=== PATIENT | female | born 1990 | race Caucasian/White ===

== ENCOUNTER 2017-09-21 22:02 | Inpatient (IN) | payer OTHER ==
[~2017-09-21] VITALS: Ht 147.3 cm; Wt 43.2 kg
[2017-09-21 22:47] LABS: BASOPHILS # (AUTO) 0.03 K/uL (0.00-0.20); BASOPHILS % (AUTO) 0.4 % (0.0-2.0); EOSINOPHILS # (AUTO) 0.06 K/uL (0.00-0.70); EOSINOPHILS % (AUTO) 0.87 % (1.0-6.0); HEMATOCRIT 41.1 % (36-46); HEMOGLOBIN 13.9 g/dL (12.0-16.0); LYMPHOCYTES # (AUTO) 2.8 K/uL (1.0-4.8); LYMPHOCYTES % (AUTO) 40.6 % (22.0-44.0); MEAN CORPUSCULAR HEMOGLOBIN 31.8 pg (26.0-34.0); MEAN CORPUSCULAR HGB CONC 33.9 G/dL (31.0-37.0); MEAN CORPUSCULAR VOLUME 94 fL (80-100); MONOCYTES # (AUTO) 0.5 K/uL (0.1-1.0); MONOCYTES % (AUTO) 6.8 % (2.0-9.0); NEUTROPHILS # (AUTO) 3.5 K/uL (1.8-7.7); NEUTROPHILS % (AUTO) 51.3 % (40.0-70.0); PLATELET COUNT (AUTO) 254 K/uL (150-450); RED BLOOD CELL COUNT(AUTO) 4.37 MIL/uL (4.00-5.20)
[2017-09-21 23:07] LABS: ANION GAP 9 mmol/L (8-16); CALCIUM, TOTAL 8.7 mg/dL (8.8-10.5); CARBON DIOXIDE 27 mmol/L (22-29); CHLORIDE 103 mmol/L (98-107); CREATININE 0.59 mg/dL (0.60-1.30); GLOMERULAR FILTR. RATE CALC > 60 mL/min (>60); GLUCOSE,RANDOM 101 mg/dL (70-110); POTASSIUM 3.5 mmol/L (3.5-5.1); SODIUM SERUM 139 mmol/L (136-145); UREA NITROGEN, BLOOD 10 mg/dL (7-18)
[2017-09-21 23:14] LABS: ALANINE AMINOTRANSFERASE 69 U/L (12-78); ALBUMIN 3.7 g/dL (3.4-5.0); ALKALINE PHOSPHATASE 41 U/L (46-116); ASPARTATE AMINOTRANSFERASE 46 U/L (15-37); BILIRUBIN,TOTAL 0.2 mg/dL (0.1-1.0); TOTAL PROTEIN, SERUM 7.4 g/dL (6.4-8.2)
[2017-09-22 00:22] LABS: CHOL/HDL RATIO 2.2 (3.9-5.7); CHOLESTEROL 162 mg/dL (131-200); HDL CHOLESTEROL 74 mg/dL (40-60); LDL CHOL (CALC.) 69 mg/dL (0-130); THYROID STIMULATING HORMONE 2.11 uIU/mL (0.36-3.74); TRIGLYCERIDES 96 mg/dL (15-150)
[2017-09-22] MEDS: LORazepam 2 MG TABLET PO PRN ×3 (01:40→16:54)
[2017-09-22 04:42] VITALS: BP 107/69
[2017-09-22] MEDS ORDERED: INFLUENZA VIRUS VACCINE QVS 2017-18 (3YR+)/PF 60 MCG/0.5 ML SYRINGE IM ONE (05:15)
[2017-09-22] MEDS: BACITRACIN 28.4 GM OINTMENT TP SCH ×2 (09:01→16:57)
[2017-09-22 09:49] VITALS: BP 93/62
[2017-09-22 13:59] VITALS: BP 93/62
[2017-09-22 16:30] VITALS: BP 110/73
[2017-09-22 16:54] VITALS: BP 110/73
[2017-09-22] MEDS: HALOPERIDOL 5 MG TABLET PO PRN (16:54)
[2017-09-22] MEDS: DIVALPROEX SODIUM 500 MG DR TABLET PO SCH (16:57)
[2017-09-22] MEDS: LITHIUM CARBONATE 300 MG CAPSULE PO SCH (16:57)
[2017-09-23 06:24] VITALS: BP 103/60
[2017-09-23 08:44] VITALS: BP 111/60
[2017-09-23] MEDS: LORazepam 2 MG TABLET PO PRN (08:53)
[2017-09-23] MEDS: HALOPERIDOL 5 MG TABLET PO PRN (08:53)
[2017-09-23] MEDS: LITHIUM CARBONATE 300 MG CAPSULE PO SCH (09:00)
[2017-09-23] MEDS: DIVALPROEX SODIUM 500 MG DR TABLET PO SCH ×2 (09:00→16:13)
[2017-09-23] MEDS: BACITRACIN 28.4 GM OINTMENT TP SCH ×2 (09:11→16:13)
[2017-09-23] MEDS: QUEtiapine FUMARATE 100 MG TABLET PO SCH ×2 (13:08→16:13)
[2017-09-23 16:25] VITALS: BP 102/64
[2017-09-24 07:12] VITALS: BP 103/60
[2017-09-24 08:23] VITALS: BP 103/67
[2017-09-24] MEDS: QUEtiapine FUMARATE 100 MG TABLET PO SCH ×3 (10:54→16:25)
[2017-09-24] MEDS: DIVALPROEX SODIUM 500 MG DR TABLET PO SCH ×2 (10:54→16:25)
[2017-09-24] MEDS: BACITRACIN 28.4 GM OINTMENT TP SCH ×2 (10:55→16:25)
[2017-09-24 16:19] VITALS: BP 102/81
[2017-09-25 05:19] VITALS: BP 117/71
[2017-09-25 08:35] VITALS: BP 116/74
[2017-09-25] MEDS: DIVALPROEX SODIUM 500 MG DR TABLET PO SCH ×2 (08:51→16:43)
[2017-09-25] MEDS: BACITRACIN 28.4 GM OINTMENT TP SCH ×2 (08:51→16:43)
[2017-09-25] MEDS: QUEtiapine FUMARATE 100 MG TABLET PO SCH ×3 (08:51→16:43)
[2017-09-25] MEDS: LORazepam 2 MG TABLET PO PRN (10:32)
[2017-09-25] MEDS: HALOPERIDOL 5 MG TABLET PO PRN (10:32)
[2017-09-25 16:15] VITALS: BP 101/61
[2017-09-26 05:25] VITALS: BP 107/63
[2017-09-26 09:00] VITALS: BP 110/63
[2017-09-26] MEDS: QUEtiapine FUMARATE 100 MG TABLET PO SCH ×3 (09:23→16:22)
[2017-09-26] MEDS: DIVALPROEX SODIUM 500 MG DR TABLET PO SCH ×2 (09:23→16:22)
[2017-09-26] MEDS: NICOTINE 14 MG/24 HOUR PATCH TD SCH (09:23)
[2017-09-26] MEDS: BACITRACIN 28.4 GM OINTMENT TP SCH ×2 (09:23→16:22)
[2017-09-26 16:47] VITALS: BP 109/76
[2017-09-26] MEDS: LORazepam 2 MG TABLET PO PRN (16:50)
[2017-09-26] MEDS: ZOLPIDEM TARTRATE 10 MG TABLET PO PRN (21:04)
[2017-09-27] MEDS: LORazepam 2 MG TABLET PO PRN (00:56)
[2017-09-27 02:08] VITALS: BP 117/63
[2017-09-27] MEDS: MAGNESIUM HYDROXIDE SUSPENSION 30 ML UDCUP PO PRN (06:40)
[2017-09-27 08:46] VITALS: BP 97/70
[2017-09-27] MEDS: BACITRACIN 28.4 GM OINTMENT TP SCH ×2 (09:27→16:35)
[2017-09-27] MEDS: QUEtiapine FUMARATE 100 MG TABLET PO SCH ×3 (09:27→16:35)
[2017-09-27] MEDS: DIVALPROEX SODIUM 500 MG DR TABLET PO SCH ×2 (09:27→16:35)
[2017-09-27] MEDS: NICOTINE 14 MG/24 HOUR PATCH TD SCH (09:27)
[2017-09-27 16:38] VITALS: BP 106/60
[2017-09-27] MEDS: ZOLPIDEM TARTRATE 10 MG TABLET PO PRN (22:34)
[2017-09-28 06:41] VITALS: BP 103/68
[2017-09-28] MEDS: MAGNESIUM HYDROXIDE SUSPENSION 30 ML UDCUP PO PRN (06:54)
[2017-09-28] MEDS: DIVALPROEX SODIUM 500 MG DR TABLET PO SCH (08:24)
[2017-09-28] MEDS: QUEtiapine FUMARATE 100 MG TABLET PO SCH (08:24)
[2017-09-28] MEDS: NICOTINE 14 MG/24 HOUR PATCH TD SCH (08:26)
[2017-09-28] MEDS: BACITRACIN 28.4 GM OINTMENT TP SCH (08:27)
[2017-09-28 08:51] VITALS: BP 102/52
[2017-09-28] MEDS ORDERED: DIVA500T35 PO (09:46)
[2017-09-28] MEDS ORDERED: QUET100T PO (09:46)
== END 2017-09-28 11:50 | disposition home or self-care (01) | DRG 885 ==
LOC: EMS 22:05 → B3A 09-22 00:30
PROVIDERS: ADMIT Psychiatry & Neurology Psychiatry; ATTEND Psychiatry & Neurology Psychiatry
DX: F31.9 Bipolar disorder, unspecified (principal); F22 Delusional disorders; R45.851 Suicidal ideations; F10.10 Alcohol abuse, uncomplicated; R45.850 Homicidal ideations; F19.10 Other psychoactive substance abuse, uncomplicated; R74.0 Nonspecific elevation of levels of transaminase and lactic acid dehydrogenase [LDH]; S51.812A Laceration without foreign body of left forearm, initial encounter; S51.811A Laceration without foreign body of right forearm, initial encounter; X99.8XXA Assault by other sharp object, initial encounter; Y93.89 Activity, other specified; Y92.89 Other specified places as the place of occurrence of the external cause; Y99.8 Other external cause status
CPT/HCPCS: 84443; 99285; G0480